=== PATIENT | male | born 1955 | race Caucasian/White ===

== ENCOUNTER → 2017-03-05 | Outpatient (CLI) | payer OTHER ==
[~2017-03-05] MED LIST: AZIT250T3 PO; CIAL5TAB PO; LOSA50TA PO; METO-309 PO; PRED1SUS LEFT EYE
[2017-03-05 14:06] LABS: HDL CHOLESTEROL 33.8 MG/DL (40.0-60.0)
== END ==
LOC: PLAB 09:33
PROVIDERS: ATTEND Internal Medicine Interventional Cardiology
DX: I42.0 Dilated cardiomyopathy (principal); I11.9 Hypertensive heart disease without heart failure; I71.4 Abdominal aortic aneurysm, without rupture
CPT/HCPCS: 80061; 84450; 84460

== ENCOUNTER 2017-05-09 14:09 | Emergency (ER) | payer OTHER ==
[~2017-05-09] VITALS: Ht 182.9 cm; Wt 89.0 kg
[~2017-05-09 14:09] MED LIST changes: -AZIT250T3 PO; -LOSA50TA PO
[2017-05-09 14:28] VITALS: BP 144/87; PULSE 74; RESP 16; TEMP 98.1; O2SAT 98
[2017-05-09] MEDS ORDERED: LOSA50TA PO (14:39)
[2017-05-09] MEDS ORDERED: AZIT250T3 PO (15:24)
--- NOTE | 2017-05-09 15:24 | PD ---
HPI Chief Complaint: Cold / Flu Symptoms Time Seen by Provider: 15:00 Travel History International Travel<30 days: No Contact w/Intl Traveler<30days: No Traveled to known affect area: No History of Present Illness HPI 61-year-old male presents emergency department for evaluation of productive cough 5 days. She works as respiratory therapist. He reports that he developed cough 5 days ago. Over the last several days become productive and he is reporting yellow sputum. He denies fever or chills, chest pain or shortness of breath. He reports similar symptoms with previous episodes of bronchitis. Severity mild. No exacerbating or alleviating factors. He has no other medical complaints. PFSH Past Medical History Hx Anticoagulant Therapy: No Arthritis: No Asthma: No Blood Disorders: No Anxiety: No Depression: No Heart Rhythm Problems: Yes (BUNDLE BRANCH BLOCK) Cancer: No Cardiovascular Problems: Yes (HTN) High Cholesterol: No Chemotherapy: No Chest Pain: No Congestive Heart Failure: No COPD: No Cerebrovascular Accident: No Diabetes: No Diminished Hearing: No Endocrine: No Gastrointestinal Disorders: No GERD: No (OCCASIONAL SYMPTOMS) Genitourinary: No Headaches: No Hepatitis: No Hiatal Hernia: No Hypertension: Yes Immune Disorder: No Implanted Vascular Access Dvce: No Kidney Stones: Yes (KIDNEY STONE EXTRACTION DEC 2007) Musculoskeletal: No Neurologic: No Psychiatric: No Respiratory: No Migraines: No Myocardial Infarction: No Radiation Therapy: No Renal Failure: No Seizures: No Sleep Apnea: No Ulcer: No Influenza Vaccination: Yes Past Surgical History Abdominal Surgery: No AICD: No Appendectomy: No Arteriovenous Shunt: No Cardiac Surgery: No Cholecystectomy: No Ear Surgery: No Endocrine Surgery: No Eye Surgery: No Genitourinary Surgery: Yes (KIDNEY STONE EXTRACTION) Gynecologic Surgery: No Insulin Pump: No Joint Replacement: No Neurologic Surgery: No Oral Surgery: No Pacemaker: No Thoracic Surgery: No Tonsillectomy: Yes ("17 MONTHS OLD") Other Surgery: Yes Social History Alcohol Use: No Tobacco Use: No Substance Use: No Allergies-Medications (Allergen,Severity, Reaction): Coded Allergies: Morphine (Verified Allergy, Severe, rash and itching, 12/14/16) Keflex (Verified Allergy, Mild, nausea, 12/14/16) Reported Meds & Prescriptions Reported Meds & Active Scripts Active Reported Losartan (Losartan Potassium) 50 Mg Tab 50 Mg PO DAILY Lopressor (Metoprolol Tartrate) 50 Mg Tab 25 Mg PO BID Review of Systems Except as stated in HPI: all other systems reviewed are Neg General / Constitutional: No: Fever Eyes: No: Visual changes HENT: No: Headaches Cardiovascular: No: Chest Pain or Discomfort Respiratory: Positive: Cough Gastrointestinal: No: Abdominal Pain Genitourinary: No: Dysuria Physical Exam Narrative GENERAL: Well-nourished, well-developed patient. SKIN: Focused skin assessment warm/dry. HEAD: Normocephalic. EYES: No scleral icterus. No injection or drainage. NECK: Supple, trachea midline. No JVD or lymphadenopathy. CARDIOVASCULAR: Regular rate and rhythm without murmurs, gallops, or rubs. RESPIRATORY: Breath sounds equal bilaterally. No accessory muscle use. No wheezing rales or rhonchi. Patient coughing throughout exam. GASTROINTESTINAL: Abdomen soft, non-tender, nondistended. MUSCULOSKELETAL: No cyanosis, or edema. BACK: Nontender without obvious deformity. No CVA tenderness. Data Data Last Documented VS Vital Signs Date Time Temp Pulse Resp B/P Pulse Ox O2 Delivery O2 Flow Rate FiO2 05/09/17 14:28 98.1 74 16 144/87 98 MDM Medical Decision Making Medical Screen Exam Complete: Yes Emergency Medical Condition: Yes Differential Diagnosis Bronchitis, viral URI, pneumonia Narrative Course Patient seen and evaluated. Patient stable at time of exam. Physical exam is reassuring. Patient is reporting mucopurulent sputum with cough 5 days. Patient is a healthcare worker. Patient will be treated with Z-Toni for bronchitis instructed follow-up with his private care doctor. Diagnosis Primary Impression: Bronchitis Referrals: Primary Care Physician Additional Instructions: Take antibiotics as prescribed. Taking [id number] cough and cold medication as needed for cough. Rest and drink plenty fluids. Return to the emergency department of follow-up with her primary care doctor be developed no worsening symptoms. Scripts Azithromycin 250 Mg [id number] Mg PO DIRECTED #6 TAB Take 2 tabs (500 mg) on day 1 then 1 tab daily x 4 days. Prov:Kavitha Bragg 05/09/17 Disposition: 01 DISCHARGE HOME Condition: Stable Kavitha Bragg May 09, 2017 15:24
== END 2017-05-09 15:48 | disposition home or self-care (01) ==
LOC: PHEFT 14:09
DX: J40 Bronchitis, not specified as acute or chronic (principal); I10 Essential (primary) hypertension; Z86.79 Personal history of other diseases of the circulatory system; Z87.442 Personal history of urinary calculi
CPT/HCPCS: 99283

== ENCOUNTER 2017-11-06 15:42 | Emergency (ER) | payer OTHER ==
[~2017-11-06] VITALS: Ht 182.9 cm; Wt 94.0 kg
[~2017-11-06 15:42] MED LIST changes: +AZIT250T3 PO; -CIAL5TAB PO; +LOSA50TA PO; -PRED1SUS LEFT EYE
[2017-11-06 15:52] VITALS: BP 190/90; PULSE 75; RESP 16; TEMP 98.3; O2SAT 99
[2017-11-06] MEDS ORDERED: CIAL5TAB PO (16:02)
[2017-11-06] MEDS ORDERED: AMLO5 PO (16:02)
[2017-11-06] MEDS ORDERED: KETOROLAC TROMETHAMINE 30 MG/ML (IVP) VIAL IV PUSH ONE (16:30)
--- NOTE | 2017-11-06 16:34 | PD ---
HPI Chief Complaint: Complaint Time Seen by Provider: 16:19 Travel History International Travel<30 days: No Contact w/Intl Traveler<30days: No Traveled to known affect area: No History of Present Illness HPI 62yo M with PMH of nephrolithiasis presents to the ED with c/o dysuria for 4 days. Said it is getting worst and starting to come up to suprapubic region. Denies any fever, nausea, vomiting, hematuria, penile discharge, testicular pain , penile rash, focal weakness or numbness. Pt said last time, the kidney stone was so large the urologist have to go in to get it. Pt is sexually active with his only. PFSH Past Medical History Hx Anticoagulant Therapy: No Arthritis: No Asthma: No Blood Disorders: No Anxiety: No Depression: No Heart Rhythm Problems: Yes (BUNDLE BRANCH BLOCK) Cancer: No Cardiovascular Problems: Yes (HTN) High Cholesterol: No Chemotherapy: No Chest Pain: No Congestive Heart Failure: No COPD: No Cerebrovascular Accident: No Diabetes: No Diminished Hearing: No Endocrine: No Gastrointestinal Disorders: No GERD: No (OCCASIONAL SYMPTOMS) Genitourinary: No Headaches: No Hepatitis: No Hiatal Hernia: No Hypertension: Yes Immune Disorder: No Implanted Vascular Access Dvce: No Kidney Stones: Yes (KIDNEY STONE EXTRACTION DEC 2007) Musculoskeletal: No Neurologic: No Psychiatric: No Respiratory: No Migraines: No Myocardial Infarction: No Radiation Therapy: No Renal Failure: No Seizures: No Sleep Apnea: No Ulcer: No Influenza Vaccination: Yes Past Surgical History Abdominal Surgery: No AICD: No Appendectomy: No Arteriovenous Shunt: No Cardiac Surgery: No Cholecystectomy: No Ear Surgery: No Endocrine Surgery: No Eye Surgery: No Genitourinary Surgery: Yes (KIDNEY STONE EXTRACTION) Gynecologic Surgery: No Insulin Pump: No Joint Replacement: No Neurologic Surgery: No Oral Surgery: No Pacemaker: No Thoracic Surgery: No Tonsillectomy: Yes ("17 MONTHS OLD") Other Surgery: Yes Social History Alcohol Use: No Tobacco Use: No Substance Use: No Allergies-Medications (Allergen,Severity, Reaction): Coded Allergies: morphine (Unverified Allergy, Severe, rash and itching, 06/22/17) cephalexin (Unverified Allergy, Mild, nausea, 06/22/17) Reported Meds & Prescriptions Reported Meds & Active Scripts Active Reported Cialis (Tadalafil) 5 Mg Tab 5 Mg PO DAILY Do not exceed 1 dose/day. Norvasc (Amlodipine Besylate) 5 Mg Tab 5 Mg PO DAILY Lopressor (Metoprolol Tartrate) 50 Mg Tab 25 Mg PO DAILY Review of Systems Except as stated in HPI: all other systems reviewed are Neg Physical Exam Narrative GENERAL: 62yo M in mild distress. SKIN: Focused skin assessment warm/dry. HEAD: Atraumatic. Normocephalic. EYES: Pupils equal and round. No scleral icterus. No injection or drainage. CARDIOVASCULAR: Regular rate and rhythm. No murmur appreciated. RESPIRATORY: No accessory muscle use. Clear to auscultation. Breath sounds equal bilaterally. GASTROINTESTINAL: Abdomen soft, +suprapubic ttp. No rebound tenderness or guarding. : No rash on penis. No penile discharge. No testicular ttp or inguinal hernia palpated. BACK: No CVA tenderness bilaterally. MUSCULOSKELETAL: No obvious deformities. No clubbing. No cyanosis. No edema. NEUROLOGICAL: Awake and alert. No obvious cranial nerve deficits. Motor grossly within normal limits. Normal speech. PSYCHIATRIC: Appropriate mood and affect; insight and judgment normal. Data Data Last Documented VS Vital Signs Date Time Temp Pulse Resp B/P (MAP) Pulse Ox O2 Delivery O2 Flow Rate FiO2 11/06/17 15:52 98.3 75 16 190/90 (123) 99 Orders Orders Complete Blood Count With Diff (11/06/17 16:24) Basic Metabolic Panel (Bmp) (11/06/17 16:24) Urinalysis - C+S If Indicated (11/06/17 16:24) Ct Abd/Pel W/O Iv Contrast (11/06/17 ) Ketorolac Inj (Toradol Inj) (11/06/17 16:30) Amlodipine (Norvasc) (11/06/17 16:45) Gc And Chlamydia Pcr (11/06/17 17:39) Labs Laboratory Tests Test 11/06/17 16:30 11/06/17 16:41 White Blood Count 5.3 TH/MM3 Red Blood Count 5.12 MIL/MM3 Hemoglobin 14.2 GM/DL Hematocrit 43.5 % Mean Corpuscular Volume 85.1 FL Mean Corpuscular Hemoglobin 27.8 PG Mean Corpuscular Hemoglobin Concent 32.6 % Red Cell Distribution Width 12.3 % Platelet Count 177 TH/MM3 Mean Platelet Volume 7.0 FL Neutrophils (%) (Auto) 55.3 % Lymphocytes (%) (Auto) 29.9 % Monocytes (%) (Auto) 11.1 % Eosinophils (%) (Auto) 3.0 % Basophils (%) (Auto) 0.7 % Neutrophils # (Auto) 2.9 TH/MM3 Lymphocytes # (Auto) 1.6 TH/MM3 Monocytes # (Auto) 0.6 TH/MM3 Eosinophils # (Auto) 0.2 TH/MM3 Basophils # (Auto) 0.0 TH/MM3 CBC Comment DIFF FINAL Differential Comment Urine Collection Type CLEAN CATCH Urine Color STRAW Urine Turbidity CLEAR Urine pH 6.0 Urine Specific [place] 1.009 Urine Protein NEG mg/dL Urine Glucose (UA) NEG mg/dL Urine Ketones NEG mg/dL Urine Occult Blood NEG Urine Nitrite NEG Urine Bilirubin NEG Urine Leukocyte Esterase NEG Urine Squamous Epithelial Cells 0-5 /hpf Microscopic Urinalysis Comment CULT NOT INDICATED Blood Urea Nitrogen 17 MG/DL Creatinine 1.10 MG/DL Random Glucose 97 MG/DL Calcium Level 9.0 MG/DL Sodium Level 139 MEQ/L Potassium Level 4.8 MEQ/L Chloride Level 104 MEQ/L Carbon Dioxide Level 30.1 MEQ/L Anion Gap 5 MEQ/L Estimat Glomerular Filtration Rate 68 ML/MIN [facility] Medical Decision Making Medical Screen Exam Complete: Yes Emergency Medical Condition: Yes Differential Diagnosis Nephrolithiasis vs. cystitis Narrative Course 62yo M with dysuria for 4 days. Labs reviewed, no leukocytosis. Creatinine normal. UA negative for blood or leukocyte. Pt does have elevated blood pressure and has not taken his amlodipine tonight so given his usual dose. CT a /p showed tiny nonobstructing stones in both kidneys. Pt given toradol with improvement of pain. Pt said he has pain in his urethra and wants something for that. Pt has no rectal pain either. Given symptoms, will cover with a few days of doxycycline even though UA is negative. GC/chlamydia pending. Return precautions given. Diagnosis Primary Impression: Urethritis Patient Instructions: General Instructions Departure Forms: Tests/Procedures Additional Instructions: Please follow up with your primary care physician in 3-7 days. Return to the ED if symptoms worsen. Med/Other Pt SpecificInfo: Prescription(s) given Scripts Doxycycline Hyclate (Doxycycline Hyclate) 100 Mg Cap 100 MG PO BID for Infection for 7 Days, #14 CAP 0 Refills Prov: Gina Amaro DO 11/06/17 Disposition: 01 DISCHARGE HOME Condition: Stable Gina Amaro DO Nov 06, 2017 16:33
[2017-11-06] MEDS ORDERED: amLODIPine BESYLATE 5 MG TAB PO ONE (16:45)
[2017-11-06 16:48] LABS: AUTOMATED NEUTROPHIL # 2.9 TH/MM3 (1.8-7.7); BASOPHIL % 0.7 % (0.0-2.0); EOSINOPHIL # 0.2 TH/MM3 (0-0.4); HEMATOCRIT 43.5 % (39.0-51.0); HEMOGLOBIN 14.2 GM/DL (13.0-17.0); LYMPH % 29.9 % (9.0-44.0); LYMPHOCYTE # 1.6 TH/MM3 (1.0-4.8); MEAN CELL VOLUME 85.1 FL (80.0-100.0); MEAN CORPUSCULAR HEMOGLOBIN 27.8 PG (27.0-34.0); MEAN CORPUSCULAR HGB CONC 32.6 % (32.0-36.0); MONO % 11.1 % (0.0-8.0); MONOCYTE # 0.6 TH/MM3 (0-0.9); NEUT % 55.3 % (16.0-70.0); PLATELET COUNT 177 TH/MM3 (150-450); RED BLOOD COUNT 5.12 MIL/MM3 (4.50-5.90); RED CELL DISTRIBUTION WIDTH 12.3 % (11.6-17.2); WHITE BLOOD COUNT 5.3 TH/MM3 (4.0-11.0)
[2017-11-06 16:51] LABS: BILIRUBIN, URINE NEG (NEG); BLOOD, URINE NEG (NEG); GLUCOSE,URINE NEG (NEG); KETONE, URINE NEG (NEG); NITRITE,URINE NEG (NEG); URINE LEUKOCYTE ESTERASE NEG (NEG)
[2017-11-06 16:57] LABS: SQUAMOUS EPITHELIAL CELL URINE 0-5 /hpf (0-5); URINE COLOR STRAW (YELLW/STRAW)
[2017-11-06 17:05] LABS: BICARBONATE 30.1 MEQ/L (21.0-32.0)
[2017-11-06 17:08] LABS: CREATININE 1.1 MG/DL (0.60-1.30)
--- NOTE | 2017-11-06 17:11 | RADRPT ---
EXAM DATE/TIME: 11/06/2017 16:44 [facility] COMPARISON: No previous studies available for comparison. INDICATIONS : Dysuria, suprapubic pain. ORAL CONTRAST: No oral contrast ingested. RADIATION DOSE: 17.39 CTDIvol (mGy) MEDICAL HISTORY : Renal calculi. Hypertension. Bowel obstruction. SURGICAL HISTORY : Vasectomy. ENCOUNTER: Initial ACUITY: 4 - 6 days PAIN SCALE: 2/10 LOCATION: Bilateral suprapubic. TECHNIQUE: Volumetric scanning of the abdomen and pelvis was performed. Using automated exposure control and ad justment of the mA and/or kV according to patient size, radiation dose was kept as low as reasonably achievable to obtain optimal diagnostic quality images. DICOM format image data is available electro nically for review and comparison. FINDINGS: CT Abdomen: The liver, spleen, pancreas, kidneys, adrenals are unremarkable. There is no evidence for any appreciable pathological adenopathy, free fluid, or bowel obstruction. There may be a small sli ding hiatal hernia. There is approximate 5 mm stone in the left kidney with a couple of tiny 1-2 mm s tones as well. Approximate 5 mm stone the right kidney as well with a second tiny 2 mm stone in the r ight lower pole kidney. There is no ureteral stone and there is no hydronephrosis on either side. Mahnaz roximat 3 cm simple cyst is present in the right kidney. CT pelvis: There is no evidence for mass, abscess formation, or any significant adenopathy within the pelvis. The prostate gland is inhomogeneous and measures 3.2 x 4.8 cm in AP and transverse diameters and nonspecific. CONCLUSION: There are tiny nonobstructing stones in both kidneys. Alberta Lemos MD on November 06, 2017 at 17:06 Board Certified Radiologist. This report was verified electronically.
[2017-11-06] MEDS ORDERED: DOXY100C PO (18:09)
[2017-11-06 18:23] VITALS: BP 132/77
== END 2017-11-06 18:25 | disposition home or self-care (01) ==
LOC: PHED 15:42
DX: N34.2 Other urethritis (principal); N20.0 Calculus of kidney; I10 Essential (primary) hypertension; Z79.899 Other long term (current) drug therapy; Z87.442 Personal history of urinary calculi
CPT/HCPCS: 74176; 80048; 81001; 85025; 87491; 87591; 96374; 99285; J1885

== ENCOUNTER → 2018-02-10 | Outpatient (CLI) | payer OTHER ==
[~2018-02-10] MED LIST changes: +AMLO5 PO; -AZIT250T3 PO; +CIAL5TAB PO; +DOXY100C PO; -LOSA50TA PO
[2018-02-10 11:01] LABS: AUTOMATED NEUTROPHIL # 3.7 TH/MM3 (1.8-7.7); BASOPHIL # 0.1 TH/MM3 (0-0.2); EOSINOPHIL # 0.3 TH/MM3 (0-0.4); EOSINOPHIL % 3.9 % (0.0-4.0); HEMOGLOBIN 14.3 GM/DL (13.0-17.0); LYMPH % 32.3 % (9.0-44.0); LYMPHOCYTE # 2.2 TH/MM3 (1.0-4.8); MEAN CELL VOLUME 84.2 FL (80.0-100.0); MEAN CORPUSCULAR HEMOGLOBIN 29.3 PG (27.0-34.0); MEAN CORPUSCULAR HGB CONC 34.8 % (32.0-36.0); MEAN PLATELET VOLUME 7.9 FL (7.0-11.0); MONO % 8.8 % (0.0-8.0); MONOCYTE # 0.6 TH/MM3 (0-0.9); PLATELET COUNT 155 TH/MM3 (150-450); RED BLOOD COUNT 4.87 MIL/MM3 (4.50-5.90); RED CELL DISTRIBUTION WIDTH 13.4 % (11.6-17.2); WHITE BLOOD COUNT 6.8 TH/MM3 (4.0-11.0)
[2018-02-10 11:03] LABS: ALBUMIN 3.6 GM/DL (3.4-5.0); AST (GOT) 24 U/L (15-37); BICARBONATE 29.5 MEQ/L (21.0-32.0); BLOOD UREA NITROGEN 22 MG/DL (7-18); CALCIUM 8.5 MG/DL (8.5-10.1); CHLORIDE 109 MEQ/L (98-107); CHOLESTEROL 188 MG/DL (120-200); GLOMERULAR FILTRATION RATE 56 ML/MIN (>89); GLUCOSE,FASTING 97 MG/DL (74-99); SODIUM (NA) 143 MEQ/L (136-145); TRIGLYCERIDES 288 MG/DL (42-150)
[2018-02-10 11:07] LABS: ALKALINE PHOSPHATASE 92 U/L (45-117); ALT (GPT) 33 U/L (12-78); HDL CHOLESTEROL 30.8 MG/DL (40.0-60.0); LDL CHOLESTEROL 100 MG/DL (0-99); TOTAL BILIRUBIN ADULT 0.5 MG/DL (0.2-1.0); TOTAL PROTEIN 7.2 GM/DL (6.4-8.2)
== END ==
LOC: PLAB 07:42
PROVIDERS: ATTEND Family Medicine
DX: N40.0 Benign prostatic hyperplasia without lower urinary tract symptoms (principal); I10 Essential (primary) hypertension; J30.1 Allergic rhinitis due to pollen; Z12.5 Encounter for screening for malignant neoplasm of prostate
CPT/HCPCS: 36415; 80053; 80061; 84153; 85025